=== PATIENT | female | born 1975 | race Caucasian/White ===

== ENCOUNTER 2023-01-12 11:30 | Observation (INO) ==
[2023-01-12 09:00] VITALS: BMI 25.1
[~2023-01-12 11:30] MED LIST: ANCEF VIAL 1 GRAM ONE; Atrovent NEB TX 0.02% NEB NR; BRIDION ONE; BYFAVO INJ IVP ONE; DIPRIVAN VIAL 20 ML ONE; DUONEB 0.5 MG/3 MG (3 mL) NEB ONE; EPHEDRINE SULFATE INJ ONE; FENTANYL VIAL INJ 100 mcg ONE; LR 1,000 ML IV 1,000 ML IV ONE; MARCAINE 0.25% INJ ONE; NAROPIN 0.75% EPI ONE; NS 100 ML IV 100 ML ONE; PEPCID 20 MG VIAL ONE; SUPRANE ONE; VERSED ONE; XOPENEX 1.25 MG/3 ML NEBULE NEB NR; ZEMURON 100 MG VIAL ONE; ZOFRAN INJ 4 MG VIAL ONE
[2023-01-12] MEDS ORDERED: OFIRMEV IV 1000 MG VIAL 1,000 MG/100 ML VIAL IV ONE (11:34)
[2023-01-12] MEDS ORDERED: TORADOL 30 MG VIAL ONE (11:34)
[2023-01-12] MEDS ORDERED: DILAUDID INJ ONE (12:15)
[2023-01-12] MEDS ORDERED: LR 1,000 ML IV 1,000 ML IV ONE (12:25)
[2023-01-12] MEDS ORDERED: ZOFRAN INJ 4 MG VIAL IVP PRN (13:21)
[2023-01-12] MEDS ORDERED: BARHEMSYS INJ IVP PRN (13:21)
[2023-01-12] MEDS ORDERED: DILAUDID INJ IVP PRN (13:21)
[2023-01-12] MEDS ORDERED: BENADRYL INJ 50 MG VIAL IVP PRN (13:21)
[2023-01-12] MEDS ORDERED: REGLAN INJ 10 MG VIAL IVP PRN (13:21)
[2023-01-12] MEDS ORDERED: SUPRANE ONE (13:50)
[2023-01-12] MEDS ORDERED: ULTANE GAS IN ONE (13:51)
[2023-01-12 14:59] VITALS: BP 99/68
== END 2023-01-12 15:13 | disposition home or self-care (01) ==
LOC: MED/SURG → EDUNIT# 11:30
PROVIDERS: ADMIT Obstetrics & Gynecology Obstetrics; ATTEND Podiatrist
DX: Y92.9 Unspecified place or not applicable; X58.XXXA Exposure to other specified factors, initial encounter; S82.851A Displaced trimalleolar fracture of right lower leg, initial encounter for closed fracture; M85.871 Other specified disorders of bone density and structure, right ankle and foot

== ENCOUNTER 2023-08-08 08:25 | Observation (INO) ==
[2023-08-08 07:41] VITALS: BMI 25.0
[~2023-08-08 08:25] MED LIST changes: -Atrovent NEB TX 0.02% NEB NR; -BRIDION ONE; -BYFAVO INJ IVP ONE; -DIPRIVAN VIAL 20 ML ONE; -DUONEB 0.5 MG/3 MG (3 mL) NEB ONE; -EPHEDRINE SULFATE INJ ONE; -FENTANYL VIAL INJ 100 mcg ONE; -MARCAINE 0.25% INJ ONE; -NAROPIN 0.75% EPI ONE; -PEPCID 20 MG VIAL ONE; -SUPRANE ONE; -VERSED ONE; -XOPENEX 1.25 MG/3 ML NEBULE NEB NR; -ZEMURON 100 MG VIAL ONE; -ZOFRAN INJ 4 MG VIAL ONE
[2023-08-08] MEDS ORDERED: PRECEDEX INJ VIAL IVP ONE (08:33)
[2023-08-08] MEDS ORDERED: XYLOCAINE 2 % (PLAIN) ONE (08:33)
[2023-08-08] MEDS ORDERED: DIPRIVAN VIAL 20 ML ONE (08:33)
[2023-08-08] MEDS ORDERED: BRIDION ONE (08:33)
[2023-08-08] MEDS ORDERED: NAROPIN 0.75% EPI ONE (08:34)
[2023-08-08] MEDS ORDERED: FENTANYL VIAL INJ 100 mcg ONE (08:34)
[2023-08-08] MEDS ORDERED: VERSED ONE (08:34)
[2023-08-08] MEDS ORDERED: KETAMINE 50 MG/5 ML-NACL SYRNG ONE (08:34)
[2023-08-08] MEDS ORDERED: OFIRMEV IV 1000 MG VIAL 1,000 MG/100 ML VIAL IV ONE (08:34)
[2023-08-08] MEDS ORDERED: LACRI-LUBE S.O.P. ONE (08:34)
[2023-08-08] MEDS ORDERED: ZOFRAN INJ 4 MG VIAL ONE (08:35)
[2023-08-08] MEDS ORDERED: PEPCID 20 MG VIAL ONE (08:35)
[2023-08-08] MEDS ORDERED: ZEMURON 100 MG VIAL ONE (08:35)
[2023-08-08] MEDS ORDERED: ULTANE GAS IN ONE (09:14)
[2023-08-08] MEDS ORDERED: ROBINUL ONE (09:25)
[2023-08-08] MEDS ORDERED: DECADRON INJ ONE (09:32)
[2023-08-08] MEDS ORDERED: BARHEMSYS INJ IVP PRN (11:18)
[2023-08-08] MEDS ORDERED: REGLAN INJ 10 MG VIAL IVP PRN (11:18)
[2023-08-08] MEDS ORDERED: BENADRYL INJ 50 MG VIAL IVP PRN (11:18)
[2023-08-08] MEDS ORDERED: ZOFRAN INJ 4 MG VIAL IVP PRN ×2 (11:18→13:02)
[2023-08-08] MEDS ORDERED: EPHEDRINE SULFATE INJ ONE (11:28)
[2023-08-08] MEDS ORDERED: LR 1,000 ML IV 1,000 ML IV ONE ×2 (11:32→11:36)
[2023-08-08] MEDS ORDERED: NEO-SYNEPHRINE INJ ONE (11:50)
[2023-08-08] MEDS ORDERED: MORPHINE SULFATE INJ 10 MG ONE (12:19)
[2023-08-08] MEDS ORDERED: BARHEMSYS INJ ONE (12:48)
[2023-08-08] MEDS ORDERED: TORADOL 30 MG VIAL ONE (12:53)
[2023-08-08] MEDS ORDERED: TYLENOL 325 MG TAB PO PRN (13:02)
[2023-08-08] MEDS ORDERED: PERCOCET TAB 5/325 MG PO PRN (13:02)
[2023-08-08] MEDS ORDERED: DILAUDID INJ ONE (13:08)
[2023-08-08] MEDS: DILAUDID INJ IVP PRN ×2 (13:10→13:16)
[2023-08-08] MEDS ORDERED: HESPAN IV IN NS 500 ML IV ONE (13:37)
[2023-08-08] MEDS ORDERED: ANCEF VIAL 1 GRAM IVP SCH (14:00)
[2023-08-08 14:19] LABS: BASOPHILS % (AUTO) 0.4 % (0.2-1.0); EOSINOPHILS % (AUTO) 0.1 % (0.9-2.9); HEMATOCRIT 27.9 % (36.0-47.0); HEMOGLOBIN 9.5 g/dL (12.0-16.0); LYMPHOCYTES % (AUTO) 10.8 % (21.0-51.0); MEAN CORPUSCULAR HEMOGLOBIN 30.7 pg (27.0-34.0); MEAN CORPUSCULAR HGB CONC 34.1 g/dL (33.0-35.0); MEAN CORPUSCULAR VOLUME 90.1 fL (80.0-100.0); MEAN PLATELET VOLUME 7.9 fL (7.4-11.0); MONOCYTES # (AUTO) 0.1 x10^3/uL (0.3-0.8); MONOCYTES % (AUTO) 0.7 % (0.0-13.0); NEUTROPHILS # (AUTO) 8.5 x10^3/uL (2.2-4.8); PLATELET COUNT 197 X10^3/uL (150.0-450.0); RED CELL DISTRIBUTION WIDTH 16.3 % (11.6-16.5); WHITE BLOOD COUNT 9.7 X10^3/uL (3.6-10.0)
[2023-08-08] MEDS: ANCEF VIAL 1 GRAM 2 G in NS 100 ML IV 100 ML IV SCH ×2 (15:05→21:08)
[2023-08-08] MEDS: NICOTINE PATCH TD SCH (15:06)
[2023-08-08] MEDS: NORCO 10/325 TAB PO PRN ×2 (16:40→21:09)
[2023-08-08] MEDS ORDERED: COLACE CAP 100 MG PO SCH (21:00)
[2023-08-08] MEDS ORDERED: DESYREL PO SCH (21:00)
[2023-08-08] MEDS: BUSPAR PO SCH (21:19)
[2023-08-09] MEDS: DILAUDID INJ IVP PRN ×2 (00:19→05:16)
[2023-08-09] MEDS: NORCO 10/325 TAB PO PRN (02:54)
[2023-08-09] MEDS: ANCEF VIAL 1 GRAM 2 G in NS 100 ML IV 100 ML IV SCH (05:15)
[2023-08-09] MEDS: BUSPAR PO SCH (05:16)
[2023-08-09 06:03] VITALS: TEMP 98.4
[2023-08-09 06:17] LABS: BLOOD UREA NITROGEN 10 mg/dL (7-18); CALCIUM 7.7 mg/dL (8.5-10.1); CARBON DIOXIDE 26.4 mmol/L (21-32); CHLORIDE 105 mmol/L (98-107); CREATININE 0.81 mg/dL (0.55-1.02); GLUCOSE 107 mg/dL (65-99); POTASSIUM 3.5 mmol/L (3.5-5.1); SODIUM 140 mmol/L (136-145); eGFR NON BLACK RACES > 60 (>60)
[2023-08-09 06:34] VITALS: RESP 18
[2023-08-09] MEDS ORDERED: CONSULT PHARMACY - POTASSIUM & MAGNESIUM XX SCH (08:00)
[2023-08-09] MEDS ORDERED: K-DUR TAB 20 MEQ PO SCH (08:00)
--- NOTE | 2023-08-09 08:08 | NOTE.SOAP ---
Soap Note Note for Day of Date of Exam: 08/09/23 Subjective Data Subjective Data: POD 1 Revision Hindfoot fusion with Removal of hardware. Patient complaining this am of pain but otherwise feels good. She states that she didnt receive much of her pain medication but I explained to her it is because she was hypotensive post op yesterday. Patient appears AAOx3 this am without SOB, dizziness, nausea, fever, chills or calf pain. Objective Data Objective Data: Strikethrough dressings, dressings were changed and incisions are well coapted without signs of dehiscence or infection. Neurovascular status intact. Patient able to move toes. Assessment Assessment: S/P Revision Hindfoot fusion with removal of hardware Pseudoarthrosis of Ankle and Subtalar joint, Left Plan Plan: Patient was seen bedside. Had a long conversation with patient and her daughter about post op protocol. Explained to her that she was hypotensive and lost a lot of blood in surgery, she had to be monitored overnight. Now pending labs in order to make sure patient is stable for discharge. Vitals are stable, BP has improved significantly. Dressings were changed bedside this am, explained to keep dressing c/d/i until follow up visit with Dr. Spears. Educated patient on smoking cessation in order to improve healing rate of bone. If Hgb is stable, patient okay for discharge from a podiatry standpoint. Ordered a stat CBC as was not seen this am.
[2023-08-09 08:11] LABS: MEAN PLATELET VOLUME 8.9 fL (7.4-11.0); PLATELET COUNT 188 X10^3/uL (150.0-450.0)
[2023-08-09 08:15] LABS: BASOPHILS # (AUTO) 0.1 X10^3/uL (0.0-0.1); BASOPHILS % (AUTO) 0.9 % (0.2-1.0); EOSINOPHILS % (AUTO) 0.2 % (0.9-2.9); HEMATOCRIT 25.1 % (36.0-47.0); HEMOGLOBIN 8.4 g/dL (12.0-16.0); LYMPHOCYTES # (AUTO) 3.5 X10^3/uL (1.3-2.9); LYMPHOCYTES % (AUTO) 22.8 % (21.0-51.0); MEAN CORPUSCULAR HEMOGLOBIN 30.1 pg (27.0-34.0); MEAN CORPUSCULAR HGB CONC 33.5 g/dL (33.0-35.0); MEAN CORPUSCULAR VOLUME 89.9 fL (80.0-100.0); MONOCYTES # (AUTO) 1.1 x10^3/uL (0.3-0.8); NEUTROPHILS # (AUTO) 10.5 x10^3/uL (2.2-4.8); NEUTROPHILS % (AUTO) 69.1 % (42.0-75.0); RED BLOOD COUNT 2.79 X10^6/uL (3.5-5.4); RED CELL DISTRIBUTION WIDTH 16.4 % (11.6-16.5); WHITE BLOOD COUNT 15.2 X10^3/uL (3.6-10.0)
[2023-08-09] MEDS: NICOTINE PATCH TD SCH (08:27)
[2023-08-09 08:44] VITALS: BP 127/68; PULSE 93; O2SAT 97
[2023-08-09] MEDS ORDERED: COZAAR PO SCH (09:00)
[2023-08-09] MEDS ORDERED: LOVENOX INJ 40 MG SYR SC SCH (09:00)
[2023-08-09] MEDS ORDERED: EFFEXOR XR 75 MG CAP 24-HR PO SCH (09:00)
[2023-08-09] MEDS ORDERED: PriLOSEC PO SCH (09:00)
--- NOTE | 2023-08-09 14:34 | DR.SSS ---
SHORT STAY SUMMARY Admission Date Date of Admission: 08/08/23 Discharge Date Discharge Date: 08/09/23 Admission Diagnoses Admission Diagnoses: S/P Revision Hindfoot fusion with removal of hardware Pseudoarthrosis of Ankle and Subtalar joint, Left Discharge Diagnoses Discharge Diagnoses: S/P Revision Hindfoot fusion with removal of hardware Pseudoarthrosis of Ankle and Subtalar joint, Left Chief Complaint Chief Complaint: Left foot pain History of Present Illness History of Present Illness: Pt is a 48 year old female admitted for Revision Hindfoot fusion with removal of hardware Pseudoarthrosis of Ankle and Subtalar joint, Left that was performed by podiatry. She was placed in observation overnight. Pt is POD#1, she did have some blood loss during procedure and hemoglobin was monitored. Hemoglobin this morning has stabilized to 8.4. No signs of active bleeding. Blood pressure and other vitals all normal. Patient medically stable to be discharged. She is to follow-up with podiatry outpatient. Instructions given for postsurgical care and wound care by podiatry. Past Surgical History Surgical History: Cholecystectomy Allergies Allergies Allergy/AdvReac Type Severity Reaction Status Date / Time oxycodone Allergy Verified 08/08/23 07:26 Medications Home Medications: oxycodone Allergy (Verified 08/08/23 07:26) CONTINUE taking the following medications losartan 25 mg tablet 25 mg PO QDAY 08/08/23 [History] omeprazole 20 mg capsule,delayed release 20 mg PO QDAY 08/08/23 [History] trazodone 100 mg tablet 100 mg PO QHS 08/08/23 [History] Family History Family Medical History: Diabetes Mellitus and Hypertension Social History Does patient currently use any type of tobacco product: Yes Have you used tobacco products in the last 12 months: Yes Type of Tobacco Use: Cigarettes How many years tobacco product used: 20 Does any household member use tobacco: No Alcohol Use: None Drug Use: None Review of Systems Constitutional: No Symptoms Reported Eyes: No Symptoms Reported ENT: No Symptoms Reported Respiratory: No Symptoms Reported Cardiovascular: No Symptoms Reported Gastrointestinal: No Symptoms Reported Genitourinary: No Symptoms Reported Musculoskeletal: Foot Pain Skin: No Symptoms Reported Neurological: No Symptoms Reported Physical Exam Vital Signs: Last Vital Signs Temp 98.4 F 08/09/23 08:00 Pulse 93 H 08/09/23 08:00 Resp 18 08/09/23 08:00 BP 127/68 08/09/23 08:00 Pulse Ox 97 08/09/23 08:00 O2 Del Method Room Air 08/09/23 08:00 Oriented: Normal Eyes: Normal Ear: Normal Respiratory: Clear Throughout Cardiovascular: Normal : Normal Auscultation: Bowel Sounds: Normal Palpation: Normal Tenderness: Normal Skin: Normal Musculoskeletal: Left and Foot Psychiatric: Normal Speech Pattern: Clear Labs Labs: Laboratory Last Values WBC 15.2 X10^3/uL (3.6-10.0) H 08/09/23 05:35 RBC 2.79 X10^6/uL (3.5-5.4) L 08/09/23 05:35 Hgb 8.4 g/dL (12.0-16.0) L 08/09/23 05:35 Hct 25.1 % (36.0-47.0) L 08/09/23 05:35 MCV 89.9 fL (80.0-100.0) 08/09/23 05:35 MCH 30.1 pg (27.0-34.0) 08/09/23 05:35 MCHC 33.5 g/dL (33.0-35.0) 08/09/23 05:35 RDW 16.4 % (11.6-16.5) 08/09/23 05:35 Plt Count 188 X10^3/uL (150.0-450.0) 08/09/23 05:35 MPV 8.9 fL (7.4-11.0) 08/09/23 05:35 Neut % (Auto) 69.1 % (42.0-75.0) 08/09/23 05:35 Lymph % (Auto) 22.8 % (21.0-51.0) 08/09/23 05:35 [place] % (Auto) 7.0 % (0.0-13.0) 08/09/23 05:35 Eos % (Auto) 0.2 % (0.9-2.9) L 08/09/23 05:35 Baso % (Auto) 0.9 % (0.2-1.0) 08/09/23 05:35 Neut # (Auto) 10.5 x10^3/uL (2.2-4.8) H 08/09/23 05:35 Lymph # (Auto) 3.5 X10^3/uL (1.3-2.9) H 08/09/23 05:35 [place] # (Auto) 1.1 x10^3/uL (0.3-0.8) H 08/09/23 05:35 Eos # (Auto) 0.0 x10^3/uL (0.0-0.2) 08/09/23 05:35 Baso # (Auto) 0.1 X10^3/uL (0.0-0.1) 08/09/23 05:35 Absolute Nucleated RBC 0.1 /100WBC 08/09/23 05:35 Sodium 140 mmol/L (136-145) 08/09/23 05:35 Corrected Sodium TNP 08/09/23 05:35 Potassium 3.5 mmol/L (3.5-5.1) 08/09/23 05:35 Chloride 105 mmol/L (98-107) 08/09/23 05:35 Carbon Dioxide 26.4 mmol/L (21-32) 08/09/23 05:35 BUN 10 mg/dL (7-18) 08/09/23 05:35 Creatinine 0.81 mg/dL (0.55-1.02) 08/09/23 05:35 Est GFR (MDRD) Af Amer > 60 (>60) 08/09/23 05:35 Est GFR (MDRD) Non-Af > 60 (>60) 08/09/23 05:35 Glucose 107 mg/dL (65-99) H 08/09/23 05:35 POC Glucose (mg/dL) 146 mg/dL (65-99) H 08/08/23 17:30 Calcium 7.7 mg/dL (8.5-10.1) L 08/09/23 05:35 Magnesium 1.6 mg/dL (2.0-2.9) L 08/09/23 05:35 Hospital Course Hospital Course: Pt is a 48 year old female admitted for Revision Hindfoot fusion with removal of hardware Pseudoarthrosis of Ankle and Subtalar joint, Left that was performed by podiatry. She was placed in observation overnight. Pt is POD#1, she did have some blood loss during procedure and hemoglobin was monitored. Hemoglobin this morning has stabilized to 8.4. No signs of active bleeding. Blood pressure and other vitals all normal. Patient medically stable to be discharged. She is to follow-up with podiatry outpatient. Instructions given for postsurgical care and wound care by podiatry. Discharge Medications Discharge Medications: Home Medication List losartan 25 mg tablet 25 mg PO QDAY 08/08/23 [History] omeprazole 20 mg capsule,delayed release 20 mg PO QDAY 08/08/23 [History] trazodone 100 mg tablet 100 mg PO QHS 08/08/23 [History] Prescriptions: Discharge Plan Discharge Plan Patient Disposition: 01 HOME, SELF-CARE Condition: Stable Health Concerns: Post Hospitalization: new medications and changes needed to prevent readmission or further decline. Pt educated and given instructions on all concerns. Care Plan Goals: Problem: Pain/Alteration in Comfort Goal: Improve/ Resolve Pain; Achieve Pain Tolerance Instructions: Take pain medications as prescribed. Contact your primary care provider if your pain is unrelieved or worsens. Follow up with primary care provider as directed. Plan of Treatment: Continue with present treatment and follow up plan. Pt is to keep follow up appointment as instructed and take medications as ordered. Assessment: No acute distress noted at discharge. Prescriptions: New hydrocodone-acetaminophen 10-325 mg Tablet 1 tab PO Q4H MDD 10 PRNQty: 36 0RF ondansetron 8 mg Tablet,Disintegrating 8 mg PO Q8H Qty: 18 0RF enoxaparin [Lovenox] 40 mg/0.4 mL Syringe 40 mg SUBCUT Q12H 30 Days Qty: 24 0RF No Action losartan 25 mg Tablet 25 mg PO QDAY omeprazole [Prilosec] 20 mg Capsule,Delayed Release(Dr/Ec) 20 mg PO QDAY trazodone 100 mg Tablet 100 mg PO QHS venlafaxine 75 mg Tablet 75 mg PO QDAY buspirone 10 mg Tablet 10 mg PO TID Orders to Discharge Patient Discharge Orders: Discharge (Routine); Ordered 08/09/23 Ordered By: Natalio Lucio Follow ups/Referrals Follow ups/Referrals: Gonzalo Spears [CONSULTING PHYSICIAN] - 08/14/23 10:30 am Instructions Instructions: Steps to Quit Smoking, [id number], Bleeding Precautions When on Anticoagulant Therapy, Adult, Health Risks of Smoking, Pain Relief Before and After Surgery, Orthopedic Hardware Removal, Care After, How and Where to Give Subcutaneous Enoxaparin Injections, How to Prevent Constipation After Surgery Activity Restrictions/Additional Instructions: Non weight beaing to operative extremity. Follow discharge instruction by Dr.Hla wolf Leave dressing intact keep clean and dry. Referral to [facility] for services sent at discharge. Stand Alone Forms: Post Hospital Follow Up Care
== END 2023-08-09 10:05 | disposition home or self-care (01) ==
LOC: MED/SURG
PROVIDERS: ADMIT Obstetrics & Gynecology Obstetrics; ATTEND Obstetrics & Gynecology Obstetrics
PROC: HARDREM (ICD-10-PCS; 2023-08-08 13:30)
DX: M96.0 Pseudarthrosis after fusion or arthrodesis; I95.89 Other hypotension; E83.42 Hypomagnesemia; R73.09 Other abnormal glucose; S82.891K Other fracture of right lower leg, subsequent encounter for closed fracture with nonunion; I10 Essential (primary) hypertension; S82.291K Other fracture of shaft of right tibia, subsequent encounter for closed fracture with nonunion; X58.XXXD Exposure to other specified factors, subsequent encounter